=== PATIENT | male | born 1965 | race Hispanic/Latino ===

== ENCOUNTER 2018-11-04 16:04 | Emergency (ER) | payer OTHER ==
[2018-11-04] MEDS ORDERED: Lidocaine 1% 20 ML MDV ONE (16:24)
[2018-11-04] MEDS ORDERED: Bupivacaine 0.5% 10 ML VIAL ONE (16:24)
[2018-11-04] MEDS ORDERED: Bacitracin Zinc 1 Packet ONE (17:56)
== END 2018-11-04 18:23 | disposition home or self-care (01) ==
LOC: SCSER 16:04
DX: S67.02XA Crushing injury of left thumb, initial encounter (principal); S62.502A Fracture of unspecified phalanx of left thumb, initial encounter for closed fracture; S61.112A Laceration without foreign body of left thumb with damage to nail, initial encounter; F17.210 Nicotine dependence, cigarettes, uncomplicated; W27.8XXA Contact with other nonpowered hand tool, initial encounter
CPT/HCPCS: 12002; J2001; J3490